=== PATIENT | male | born 1970 | race Caucasian/White ===

== ENCOUNTER 2024-06-29 06:20 | Day surgery (SDC) | payer OTHER, SELFPAY | END 2024-06-29 10:08 | disposition home or self-care (01) | LOC: GI 06:20 | PROVIDERS: ATTENDING PHYSICIAN Internal Medicine Gastroenterology | DX: Z12.11 Encounter for screening for malignant neoplasm of colon (principal); K64.8 Other hemorrhoids; D12.4 Benign neoplasm of descending colon; K63.5 Polyp of colon; K62.1 Rectal polyp; Z83.719 Family history of colon polyps, unspecified | CPT/HCPCS: 45385; 45380; 88305 ==